=== PATIENT | female | born 1995 | race Caucasian/White ===

== ENCOUNTER 2016-12-23 23:00 | Emergency (ER) | payer BC ==
[~2016-12-23] VITALS: Ht 162.6 cm; Wt 84.7 kg
[~2016-12-23 23:00] MED LIST: ANAPROX DS550 M1 PO; FLEXERIL10 MG PO; MIRENA52 MG IY; MOTRIN800 MG PO; NAPROSYN500 MG PO; ORSYTHIA1 EACH PO; ZOFRAN ODT4 MG PO
[2016-12-24] MEDS ORDERED: INDOCIN50 MG PO (00:10)
[2016-12-24 00:33] VITALS: BP 104/65
== END 2016-12-24 00:35 | disposition home or self-care (01) ==
LOC: EME 23:00
DX: S29.011A Strain of muscle and tendon of front wall of thorax, initial encounter (principal); F17.200 Nicotine dependence, unspecified, uncomplicated
CPT/HCPCS: 99281; 99284